=== PATIENT | male | born 1970 | race Two or more races ===

== ENCOUNTER 2022-01-22 08:06 | Day surgery (SDC) | payer OTHER ==
[2022-01-19 09:58] VITALS: BMI 27.8
[2022-01-22] MEDS ORDERED: PROPOFOL 40 ML ONE (08:08)
[2022-01-22] MEDS ORDERED: LIDOCAINE HCL/PF 2% SDV 5ML VIAL ONE (08:08)
[2022-01-22 09:56] VITALS: RESP 16; TEMP 97.9
[2022-01-22 10:16] VITALS: BP 112/71; PULSE 85
== END 2022-01-22 10:38 | disposition home or self-care (01) ==
LOC: FASU-ENDO 08:06
PROVIDERS: ATTEND Internal Medicine Gastroenterology
PROC: 0DB98ZX Excision of Duodenum, Via Natural or Artificial Opening Endoscopic, Diagnostic (ICD-10-PCS; 2022-01-22)
PROC: 0DB68ZX Excision of Stomach, Via Natural or Artificial Opening Endoscopic, Diagnostic (ICD-10-PCS; 2022-01-22)
PROC: 0DJD8ZZ Inspection of Lower Intestinal Tract, Via Natural or Artificial Opening Endoscopic (ICD-10-PCS; principal; 2022-01-22 09:23)
DX: Z12.11 Encounter for screening for malignant neoplasm of colon (principal); K29.50 Unspecified chronic gastritis without bleeding; K29.80 Duodenitis without bleeding; B96.81 Helicobacter pylori [H. pylori] as the cause of diseases classified elsewhere
CPT/HCPCS: 88305-TC; 88342-TC